=== PATIENT | male | born 1990 | race Two or more races ===

== ENCOUNTER 2018-04-30 11:28 | Emergency (ER) | payer SELFPAY ==
[~2018-04-30] VITALS: Ht 175.3 cm; Wt 63.5 kg
[2018-04-30 11:33] VITALS: BP 111/69
[2018-04-30] MEDS ORDERED: Cephalexin 500mg cap ORAL ONE (12:00)
[2018-04-30] MEDS ORDERED: IBUPROFEN600 MG ORAL (12:21)
[2018-04-30] MEDS ORDERED: BACTRIM DS TAB1 EAC1 ORAL (12:21)
[2018-04-30] MEDS ORDERED: CEPHALEXIN500 MG ORAL (12:21)
[2018-04-30 12:37] VITALS: BP 110/68
--- NOTE | 2018-04-30 13:07 | Emergency Room Report ---
History of Present Illness General Chief Complaint: Skin Rash/Abscess Source: Patient Present Illness HPI Patient presents with reports of swelling and discharge from the right area molar region Patient reports that he had a piercing placed about 3 weeks ago He reports some physical contact with a friend about 7 days ago and since then he has noticed increased swelling and more recently yellowish whitish discharge from the region Allergies: Coded Allergies: No Known Allergies (Unverified , 04/30/18) Patient History Past Medical History: see triage record Pertinent Family History: none Reviewed Nursing Documentation: PMH: Agreed; PSxH: Agreed Nursing Documentation-PMH Past Medical History: No History, Except For Review of Systems All Other Systems: negative except mentioned in HPI Physical Exam Vital Signs Date Time Temp Pulse Resp B/P (MAP) Pulse Ox O2 Delivery O2 Flow Rate FiO2 04/30/18 11:33 98.6 66 20 111/69 97 Room Air Sp02 EP Interpretation: reviewed, normal General Appearance: well appearing, no apparent distress Head: normocephalic, atraumatic Eyes: bilateral eye PERRL, bilateral eye EOMI ENT: hearing grossly normal, normal pharynx, TMs + canals normal, uvula midline Neck: full range of motion, supple, no meningismus, no bony tend Respiratory: lungs clear Cardiovascular #1: regular rate, rhythm Musculoskeletal: normal inspection Neurologic: alert, oriented x3 Skin: other - Piercing in place across the right area lower region, there is some mild fluctuance mild discharge is also noted to the medial aspect, Lymphatic: no adenopathy Medical Decision Making Diagnostic Impression: Primary Impression: Abscess ER Course Given the exam and findings patient is requested to remove the ring that is going through the areolar area I feel that this is acting as a foreign body and also sealing off and abscess area that requires to be open Patient reports that he will remove this in the shower later today as the pain is less during that time Patient is placed on antibiotics and requires close follow-up Last Vital Signs Date Time Temp Pulse Resp B/P (MAP) Pulse Ox O2 Delivery O2 Flow Rate FiO2 04/30/18 11:33 98.6 62 20 111/69 97 Room Air Status: improved Disposition: HOME, SELF-CARE Condition: Stable Scripts Ibuprofen* (MOTRIN*) 600 Mg Tablet 600 MG ORAL Q8H PRN for For Pain, #20 TAB 0 Refills Prov: Bettina Minor DO 04/30/18 Trimethoprim/Sulfamethoxazole 160/800* (BACTRIM DS TABLET*) 1 Each Tablet 1 TAB ORAL Q12H, #20 TAB 0 Refills Prov: Bettina Minor DO 04/30/18 Cephalexin* (KEFLEX*) 500 Mg Capsule 500 MG ORAL EVERY 6 HOURS for 10 Days, CAP Prov: Bettina Minor DO 04/30/18 Referrals: NON PHYSICIAN (PCP) Patient Instructions: Abscess Additional Instructions: Patient is provided with the discharge instructions notified to follow up with primary doctor in the next 2-3 days otherwise return to the er with any worsening symptoms. Please note that this report is being documented using [employer] technology. This can lead to erroneous entry secondary to incorrect interpretation by the dictating instrument. Bettina Minor DO Apr 30, 2018 13:07
== END 2018-04-30 12:37 | disposition home or self-care (01) ==
LOC: EMR 12:07
DX: N61.1 Abscess of the breast and nipple (principal)
CPT/HCPCS: 99283